=== PATIENT | female | born 1965 | race Caucasian/White ===

== ENCOUNTER 2017-02-26 22:51 | Emergency (ER) | payer MEDICAID ==
[~2017-02-26] VITALS: Ht 165.1 cm; Wt 122.5 kg
[2017-02-26 22:55] VITALS: BP 141/80
--- NOTE | 2017-02-26 23:09 | NUR ---
PATIENT TO ER BED 7
--- NOTE | 2017-02-26 23:15 | NUR ---
51 Y/O W/C/O HEADACHES AND CHEST TIGHNESS X 3 DAYS. O2 SAT 97% IN RA, NO S/S OF RESP DISTRESS NOTED. PER SISTER PT'S PARENT 3 DAYS AGO AND PT HAS BEING DRINKING X 3 DAYS. PT ON MONITOR, NO S/S OF DISTRESS NOTED. ER MD MADE AWARE.
[2017-02-26] MEDS: ASPIRIN 81 MG TAB.CHEW PO ONE (23:42)
[2017-02-26] MEDS: KETOROLAC 60 MG/2 ML VIAL IM ONE (23:43)
[2017-02-26] MEDS: LORazepam 2 MG/ML VIAL IM ONE (23:47)
[2017-02-26 23:49] LABS: HEMATOCRIT 37.1 % (36-48); HEMOGLOBIN 12.1 g/dL (12.0-16.0); MEAN CORPUSCULAR HEMOGLOBIN 27 pg (27-31); MEAN CORPUSCULAR HGB CONC 33 g/dL (33-37); MEAN CORPUSCULAR VOLUME 82 fL (80-94); PLATELET COUNT (AUTO) 288 K/uL (140-450); RED BLOOD CELL COUNT(AUTO) 4.51 MIL/uL (4.20-5.40); RED CELL DISTRIBUTION WIDTH 15.5 % (11.6-13.7)
[2017-02-26 23:50] LABS: BASOPHILS # (AUTO) 0.2 K/uL (0.00-0.22); EOSINOPHILS # (AUTO) 0.2 K/uL (0-0.4); EOSINOPHILS % (AUTO) 1.5 % (0.0-4.0); LYMPHOCYTES # (AUTO) 4.9 K/uL (2.5-16.5); LYMPHOCYTES % (AUTO) 44.6 % (20.5-51.1); MONOCYTES # (AUTO) 0.5 K/uL (0.8-1.0); MONOCYTES % (AUTO) 4.7 % (1.7-9.3); NEUTROPHILS # (AUTO) 5.2 K/uL (1.8-7.7); NEUTROPHILS % (AUTO) 47.2 % (42.2-75.2)
[2017-02-26 23:56] LABS: ANION GAP 14.3 (8-16); CALCIUM 8.1 mg/dL (8.5-10.1); CARBON DIOXIDE 24.3 mmol/L (21-32); CREATININE 0.8 mg/dL (0.6-1.3); POTASSIUM 3.6 mmol/L (3.5-5.1)
[2017-02-26 23:57] LABS: ALBUMIN 3.2 g/dL (3.4-5.0); TOTAL BILIRUBIN 0.7 mg/dL (0.0-1.0); TOTAL PROTEIN, SERUM 7.8 g/dL (6.4-8.2)
[2017-02-27 00:05] LABS: INR 1.2 (0.8-1.2); PROTHROMBIN TIME 11.2 secs (10.8-13.4)
[2017-02-27 00:06] LABS: PARTIAL THROMBOPLASTIN TIME 26.5 secs (22-35.6)
[2017-02-27 01:15] VITALS: BP 129/62
== END 2017-02-27 01:15 | disposition home or self-care (01) ==
LOC: MED 22:51
DX: F41.9 Anxiety disorder, unspecified (principal); I10 Essential (primary) hypertension; F32.9 Major depressive disorder, single episode, unspecified
CPT/HCPCS: 36415; 71010; 80053; 84484; 85025; 85610; 85730; 93005; 96372; 99285; J1885; J2060